=== PATIENT | male | born 1990 | race Caucasian/White ===

== ENCOUNTER 2017-10-26 18:37 | Emergency (ER) | payer MEDICAID, OTHER ==
[~2017-10-26] VITALS: Ht 172.7 cm; Wt 105.0 kg
[2017-10-26 18:45] VITALS: BP 115/61
== END 2017-10-26 23:20 | disposition left against medical advice (07) ==
LOC: ER 18:53
DX: R53.1 Weakness (principal); Z53.21 Procedure and treatment not carried out due to patient leaving prior to being seen by health care provider

== ENCOUNTER 2020-11-30 20:03 | Emergency (ER) | payer BC, OTHER ==
[~2020-11-30] VITALS: Ht 172.7 cm; Wt 106.0 kg
[2020-11-30 20:21] VITALS: BP 120/72
[2020-11-30 21:14] LABS: CLARITY URINE CLEAR (CLEAR); COLOR URINE YELLOW (YELLOW); KETONES URINE TRACE (NEGATIVE); LEUKOCYTE ESTERASE URINE NEGATIVE (NEGATIVE); NITRITE URINE NEGATIVE (NEGATIVE); OCCULT BLOOD URINE NEGATIVE (NEGATIVE); PH URINE 6.5 (4.5-8.0); PROTEIN URINE NEGATIVE (NEGATIVE); SPECIFIC GRAVITY URINE 1.016 (1.005-1.030); UROBILINOGEN URINE 0.2 E.U./dL (0.2-1.0)
[2020-12-01] MEDS ORDERED: ONDA4TAB11 PO (11:26)
[2020-12-01] MEDS ORDERED: TRAM-529 MT (11:27)
== END 2020-11-30 23:49 | disposition left against medical advice (07) ==
LOC: ER 20:03
DX: Z53.21 Procedure and treatment not carried out due to patient leaving prior to being seen by health care provider (principal)
CPT/HCPCS: 81003

== ENCOUNTER 2020-12-01 08:13 | Emergency (ER) | payer BC ==
[~2020-12-01] VITALS: Ht 172.7 cm; Wt 75.0 kg
[2020-12-01] MEDS ORDERED: TRAMADOL 50MG TABLET PO ONE (08:45)
[2020-12-01] MEDS ORDERED: ONDANSETRON 4MG ODT PO ONE (08:45)
[2020-12-01 09:43] LABS: BASOPHILS % 0.2 % (0.0-2.0); EOSINOPHILS % 0.2 % (0.0-5.0); HEMATOCRIT. 44.5 % (42.0-52.0); HEMOGLOBIN. 14.7 g/dL (14.0-18.0); LYMPHOCYTES % 10.8 % (20.0-50.0); MEAN CORPUSCULAR HEMOGLOBIN 27.3 pg (28.0-32.0); MEAN CORPUSCULAR VOLUME 82.3 fL (80.0-94.0); MEAN PLATELET VOLUME 8.7 fl (7.4-10.4); MONOCYTES % 11.1 % (2.0-8.0); NEUTROPHILS % 77.7 % (40.0-76.0); PLATELET 242 x1000/uL (130-400); RED BLOOD CELL COUNT 5.41 mill/uL (4.7-6.1); RED CELL DISTRIBUTION WIDTH 15.6 % (11.6-14.6)
[2020-12-01 09:47] LABS: CHLORIDE 104 mEq/L (98-107)
[2020-12-01 09:48] LABS: CLARITY URINE CLEAR (CLEAR); COLOR URINE YELLOW (YELLOW); KETONES URINE TRACE (NEGATIVE); LEUKOCYTE ESTERASE URINE NEGATIVE (NEGATIVE); NITRITE URINE NEGATIVE (NEGATIVE); OCCULT BLOOD URINE TRACE (NEGATIVE); PROTEIN URINE NEGATIVE (NEGATIVE); SPECIFIC GRAVITY URINE 1.024 (1.005-1.030); UROBILINOGEN URINE 0.2 E.U./dL (0.2-1.0)
[2020-12-01 09:51] LABS: INR 1.1; PROTHROMBIN TIME 11.9 sec (9.6-11.0)
[2020-12-01] MEDS ORDERED: ONDA4TAB11 PO (11:26)
[2020-12-01] MEDS ORDERED: TRAM-529 MT (11:27)
[2020-12-01 11:35] VITALS: BP 129/72
== END 2020-12-01 11:35 | disposition home or self-care (01) ==
LOC: ER 08:13
DX: K29.70 Gastritis, unspecified, without bleeding (principal)
CPT/HCPCS: 36415; 80053; 81003; 83690; 85025; 85610; 99283; Z7610

== ENCOUNTER 2022-10-12 22:28 | Emergency (ER) | payer BC ==
[~2022-10-12] VITALS: Ht 172.7 cm; Wt 114.0 kg
[~2022-10-12 22:28] MED LIST: ONDA4TAB11 PO; TRAM-529 MT
[2022-10-13] MEDS ORDERED: IBUPROFEN 400MG TABLET PO ONE
[2022-10-13 00:44] VITALS: BP 130/74
[2022-10-13] MEDS ORDERED: ACET-2708 MT (01:38)
[2022-10-13] MEDS ORDERED: NAPR-681 MT (01:38)
== END 2022-10-13 02:20 | disposition home or self-care (01) ==
LOC: ER 22:28
DX: S86.012A Strain of left Achilles tendon, initial encounter (principal); X58.XXXA Exposure to other specified factors, initial encounter; Y93.66 Activity, soccer; Y92.89 Other specified places as the place of occurrence of the external cause; Y99.8 Other external cause status
CPT/HCPCS: 29515; 73610; 99283; Z7610